=== PATIENT | female | born 2000 | race Caucasian/White ===

== ENCOUNTER → 2022-11-01 | Day surgery (SDC) | payer OTHER ==
[~2022-11-01] MED LIST: LIDOCAINE HCL 2% LOCAL INJ 5 ML SDV VIAL INJ ONE; PROPOFOL IV EMULSION 10 MG/ML 20 ML VIAL ONE
[2022-11-01 09:50] VITALS: BP 114/70
== END | disposition home or self-care (01) ==
LOC: OR 06:34
PROVIDERS: ATTEND Internal Medicine Gastroenterology
DX: K59.00 Constipation, unspecified (principal); K92.1 Melena; Z71.3 Dietary counseling and surveillance; E66.01 Morbid (severe) obesity due to excess calories; F41.9 Anxiety disorder, unspecified; Z88.8 Allergy status to other drugs, medicaments and biological substances
CPT/HCPCS: 45380; 81025; 88304; 88305; J2001